=== PATIENT | male | born 1945 | race Caucasian/White ===

== ENCOUNTER 2016-05-06 10:03 | Observation (INO) | payer MEDICARE ==
[~2016-05-06] VITALS: Ht 193 cm; Wt 121.9 kg
[2016-05-06] MEDS ORDERED: SODIUM CHLORIDE FLUSH 10ML SYR IVF ONE (11:00)
[2016-05-06 11:34] LABS: BLOOD UREA NITROGEN 13 mg/dL (7-18)
[2016-05-06 11:44] LABS: IS PT STATUS REG ER OR PRE ER? YES
[2016-05-06] MEDS ORDERED: LISI2.5T PO (11:56)
[2016-05-06] MEDS ORDERED: FLUT9.9S NAS (11:56)
[2016-05-06] MEDS ORDERED: ASPI-496 PO (11:56)
[2016-05-06] MEDS ORDERED: NIAC1000 PO (11:56)
[2016-05-06] MEDS ORDERED: ATOR10TA9 PO (11:56)
[2016-05-06] MEDS ORDERED: GUAI-103 PO (11:56)
[2016-05-06] MEDS: SODIUM CHLORIDE 0.9% 1,000 ML IV SCH ×2 (11:57→19:57)
[2016-05-06] MEDS ORDERED: CEFAZOLIN 1,000 MG ONE (12:45)
[2016-05-06] MEDS ORDERED: MIDAZOLAM 1 MG/ML, 5ML ONE (12:45)
[2016-05-06] MEDS ORDERED: CEFAZOLIN PMX 1GM/50ML 50 ML ONE (12:45)
[2016-05-06] MEDS ORDERED: FENTANYL PF 100 MCG/2ML ONE (12:45)
[2016-05-06] MEDS ORDERED: LIDOCAINE 2%, 20ML ONE (12:45)
[2016-05-06] MEDS ORDERED: HYDROcodone/APAP 5/325 TABLET PO PRN (13:00)
[2016-05-06 13:58] VITALS: BP 117/75
[2016-05-06] MEDS ORDERED: GLYB2.5T2 PO (17:03)
[2016-05-06 18:41] VITALS: BP 109/65
[2016-05-06] MEDS ORDERED: ATORVASTATIN 10 MG TABLET PO SCH (21:00)
[2016-05-06] MEDS: SODIUM CHLORIDE FLUSH 10ML SYR IVF SCH (21:15)
[2016-05-06] MEDS: CEFAZOLIN PMX 1GM/50ML 50 ML IVPB SCH (21:16)
[2016-05-07] MEDS: SODIUM CHLORIDE 0.9% 1,000 ML IV SCH (00:50)
[2016-05-07 03:49] VITALS: BP 112/70
[2016-05-07] MEDS: CEFAZOLIN PMX 1GM/50ML 50 ML IVPB SCH (04:59)
[2016-05-07] MEDS: SODIUM CHLORIDE FLUSH 10ML SYR IVF SCH (07:58)
[2016-05-07 08:07] VITALS: BP 103/69
[2016-05-07] MEDS ORDERED: LISINOPRIL 5 MG TABLET PO SCH (09:00)
[2016-05-07] MEDS ORDERED: NIACIN 1000 MG PO SCH (09:00)
[2016-05-07] MEDS ORDERED: ASPIRIN 81 MG TABLET EC PO SCH (09:00)
[2016-05-07] MEDS ORDERED: FLUTICASONE NASAL SPRAY 16GM NAS SCH (09:00)
== END 2016-05-07 11:26 | disposition home or self-care (01) ==
LOC: ED 11:49 → INTOOBSV 11:50 → EDIP 11:50 → ED 12:05 → 5SO 14:03 → DCLOUNGE 05-07 10:56 → UNDODISIN 05-07 11:26
PROVIDERS: ADMIT Internal Medicine Cardiovascular Disease; ATTEND Internal Medicine Cardiovascular Disease
DX: I49.5 Sick sinus syndrome (principal); I21.19 ST elevation (STEMI) myocardial infarction involving other coronary artery of inferior wall; I25.10 Atherosclerotic heart disease of native coronary artery without angina pectoris; I10 Essential (primary) hypertension; I46.9 Cardiac arrest, cause unspecified; I65.29 Occlusion and stenosis of unspecified carotid artery; R06.02 Shortness of breath; E11.40 Type 2 diabetes mellitus with diabetic neuropathy, unspecified; E78.5 Hyperlipidemia, unspecified; E66.9 Obesity, unspecified; E78.2 Mixed hyperlipidemia; Z87.891 Personal history of nicotine dependence; Z82.49 Family history of ischemic heart disease and other diseases of the circulatory system
CPT/HCPCS: 33208; 36415; 71010; 80048; 80061; 82040; 83036; 83735; 84443; 84481; 84484; 85025; 85610; 85730; 93005; 93306; 96365; 96375; 99285; C1779; C1785; C1892; G0378; J0690; J2250; J3010; J3490

== ENCOUNTER → 2016-10-12 | Outpatient (CLI) | payer MEDICARE ==
[~2016-10-12] MED LIST: ASPI-496 PO; ATOR10TA9 PO; FLUT9.9S NAS; GLYB2.5T2 PO; GUAI-103 PO; LISI2.5T PO; NIAC1000 PO
== END | disposition home or self-care (01) ==
LOC: CFH 10:08
PROVIDERS: ATTEND Nurse Practitioner Family
DX: Z13.820 Encounter for screening for osteoporosis (principal); M85.88 Other specified disorders of bone density and structure, other site; Z82.62 Family history of osteoporosis
CPT/HCPCS: 77080

== ENCOUNTER → 2019-05-01 | Outpatient (CLI) | payer MEDICARE | END | disposition home or self-care (01) | LOC: CFH 11:57 | PROVIDERS: ATTEND Physician Assistant Medical | DX: I25.10 Atherosclerotic heart disease of native coronary artery without angina pectoris (principal); I10 Essential (primary) hypertension | CPT/HCPCS: 78452; 93017; A9502 ==

== ENCOUNTER 2020-03-26 14:55 | Observation (INO) | payer MEDICARE ==
[~2020-03-26] VITALS: Ht 193 cm; Wt 127.0 kg
--- NOTE | 2020-03-26 15:27 | NUR ---
CHEF DE FROID: PT TO ROOM FROM [facility]
[2020-03-26 16:17] LABS: BASOPHILS % (AUTO) 1 % (0-1); EOSINOPHILS % (AUTO) 1 % (1-7); LYMPHOCYTES % (AUTO) 18 % (22-44); MEAN CORPUSCULAR HEMOGLOBIN 31.6 pg (27.5-34.5); MEAN CORPUSCULAR HGB CONC 34.1 g/dL (33.2-36.2); MEAN PLATELET VOLUME 8.8 fL (7.4-10.4); MONOCYTES % (AUTO) 12 % (2-9); NEUTROPHILS % (AUTO) 68 % (42-75); PLATELET COUNT 192 x10^3/uL (130-400); RED BLOOD COUNT 4.25 x10^6/uL (4.38-5.82); RED CELL DISTRIBUTION WIDTH 12.9 % (9.4-14.8)
[2020-03-26 16:20] LABS: ALANINE AMINOTRANSFERASE 50 U/L (12-78); ANION GAP 3 mmol/L (5-15); CALCIUM 8.5 mg/dL (8.5-10.1); CHLORIDE 97 mmol/L (98-107); CREATININE 1.06 mg/dL (0.7-1.3)
[2020-03-26 16:23] LABS: ALKALINE PHOSPHATASE 72 U/L (45-117); BILIRUBIN,TOTAL 1.2 mg/dL (0.2-1.0); TOTAL PROTEIN 7.3 g/dL (6.4-8.2)
--- NOTE | 2020-03-26 16:30 | NUR ---
PT TO CT SCAN
[2020-03-26 16:54] LABS: MD SCAN
[2020-03-26] MEDS ORDERED: OMNIPAQUE 350 MG/ML, 100ML BOTTLE ONE (17:00)
--- NOTE | 2020-03-26 17:00 | NUR ---
PT BACK FROM CT
--- NOTE | 2020-03-26 18:09 | NUR ---
PT RESTING IN ROOM NAD
[2020-03-26] MEDS ORDERED: BISACODYL 10 MG SUPP PR PRN (18:30)
[2020-03-26] MEDS ORDERED: MELATONIN 5 MG TABLET PO PRN (18:30)
[2020-03-26] MEDS ORDERED: TRAZODONE 50MG TABLET PO PRN (18:30)
[2020-03-26] MEDS: SODIUM CHLORIDE 0.9% 1,000 ML IV SCH (18:30)
[2020-03-26] MEDS ORDERED: ACETAMINOPHEN 325 MG TABLET PO PRN (18:30)
[2020-03-26] MEDS ORDERED: ONDANSETRON ODT 4 MG PO PRN (18:30)
[2020-03-26] MEDS ORDERED: ENOXAPARIN 40 MG/0.4 ML SQ SCH (20:00)
[2020-03-26 20:06] VITALS: BP 148/78
[2020-03-26] MEDS: OMEPRAZOLE 20 MG CAPSULE.DR PO SCH (21:00)
[2020-03-26] MEDS: INSULIN LISPRO 100 UNITS/ML, PEN SQ-INSULIN SCH (21:00)
[2020-03-26] MEDS ORDERED: ATORVASTATIN 10 MG TABLET PO SCH (21:00)
[2020-03-26 21:56] VITALS: BP 117/73
[2020-03-27 01:47] VITALS: BP 103/62
[2020-03-27] MEDS: SODIUM CHLORIDE 0.9% 1,000 ML IV SCH ×2 (02:44→10:30)
[2020-03-27] MEDS: OMEPRAZOLE 20 MG CAPSULE.DR PO SCH (07:00)
[2020-03-27 07:02] LABS: BASOPHILS % (AUTO) 1 % (0-1); EOSINOPHILS % (AUTO) 2 % (1-7); LYMPHOCYTES % (AUTO) 18 % (22-44); MD NO; MEAN CORPUSCULAR HEMOGLOBIN 31.7 pg (27.5-34.5); MEAN PLATELET VOLUME 8.5 fL (7.4-10.4); MONOCYTES % (AUTO) 11 % (2-9); NEUTROPHILS % (AUTO) 68 % (42-75); PLATELET COUNT 193 x10^3/uL (130-400); RED BLOOD COUNT 4.19 x10^6/uL (4.38-5.82); RED CELL DISTRIBUTION WIDTH 13.1 % (9.4-14.8)
[2020-03-27 07:19] LABS: ALBUMIN 2.6 g/dL (3.4-5.0); ANION GAP 5 mmol/L (5-15); CALCIUM 8.2 mg/dL (8.5-10.1); CHLORIDE 104 mmol/L (98-107)
[2020-03-27 07:23] LABS: ALANINE AMINOTRANSFERASE 56 U/L (12-78); ALKALINE PHOSPHATASE 70 U/L (45-117); BILIRUBIN,TOTAL 1.1 mg/dL (0.2-1.0); CREATININE 0.89 mg/dL (0.7-1.3)
[2020-03-27 07:33] VITALS: BP 107/62
[2020-03-27] MEDS ORDERED: FLUTICASONE NASAL SPRAY 16GM NAS SCH (09:00)
[2020-03-27] MEDS ORDERED: LISINOPRIL 5 MG TABLET PO SCH (09:00)
[2020-03-27] MEDS ORDERED: SENNA/DOCUSATE TABLET PO SCH (09:00)
[2020-03-27] MEDS: INSULIN LISPRO 100 UNITS/ML, PEN SQ-INSULIN SCH ×2 (10:11→12:08)
[2020-03-27 12:15] VITALS: BP 102/65
== END 2020-03-27 12:15 | disposition home or self-care (01) ==
LOC: ED 15:41 → INTOOBSV 17:31 → EDIP 17:31 → SUATTDRO 17:45 → 3N 19:52 → DCLOUNGE 03-27 12:10
PROVIDERS: ADMIT Internal Medicine; ATTEND Internal Medicine
DX: K76.0 Fatty (change of) liver, not elsewhere classified (principal); K59.09 Other constipation; E87.1 Hypo-osmolality and hyponatremia; E11.65 Type 2 diabetes mellitus with hyperglycemia; I10 Essential (primary) hypertension; I25.10 Atherosclerotic heart disease of native coronary artery without angina pectoris; E78.5 Hyperlipidemia, unspecified; I49.9 Cardiac arrhythmia, unspecified; E86.1 Hypovolemia; E66.9 Obesity, unspecified; Z79.899 Other long term (current) drug therapy
CPT/HCPCS: 36415; 74021; 74177; 80053; 82150; 82962; 83690; 85025; 96360; 96361; 96372; 99285; G0378; J1650; J1815; J7030; Q9967

== ENCOUNTER → 2020-10-02 | Outpatient (CLI) | payer MEDICARE ==
[~2020-10-02] MED LIST changes: +OMNIPAQUE 350 MG/ML, 150 ML BOTTLE ONE
[2020-10-02 10:09] LABS: BASOPHILS % (AUTO) 1 % (0-1); EOSINOPHILS % (AUTO) 4 % (1-7); LYMPHOCYTES % (AUTO) 42 % (22-44); MEAN CORPUSCULAR HEMOGLOBIN 31.4 pg (27.5-34.5); MEAN CORPUSCULAR HGB CONC 33.9 g/dL (33.2-36.2); MONOCYTES % (AUTO) 9 % (2-9); NEUTROPHILS % (AUTO) 44 % (42-75); PLATELET COUNT 167 x10^3/uL (130-400); RED BLOOD COUNT 4.84 x10^6/uL (4.38-5.82); RED CELL DISTRIBUTION WIDTH 13.5 % (9.4-14.8)
[2020-10-02 10:19] LABS: ALBUMIN 3.7 g/dL (3.4-5.0); ANION GAP 6 mmol/L (5-15); CALCIUM 9.1 mg/dL (8.5-10.1); CHLORIDE 107 mmol/L (98-107)
[2020-10-02 10:22] LABS: ALANINE AMINOTRANSFERASE 41 U/L (12-78); ALKALINE PHOSPHATASE 71 U/L (45-117); BILIRUBIN,TOTAL 0.9 mg/dL (0.2-1.0); CREATININE 1.18 mg/dL (0.7-1.3); TOTAL PROTEIN 7.6 g/dL (6.4-8.2)
== END | disposition home or self-care (01) ==
LOC: RAD 09:46
PROVIDERS: ATTEND Family Medicine
DX: J98.11 Atelectasis (principal); M47.816 Spondylosis without myelopathy or radiculopathy, lumbar region; R10.11 Right upper quadrant pain
CPT/HCPCS: 36415; 71260; 74160; 80053; 85025; Q9967